=== PATIENT | female | born 1960 | race African-American/Black ===

== ENCOUNTER 2016-10-25 11:00 | Observation (INO) | payer SELFPAY ==
[2016-10-25 11:12] VITALS: BMI 28.2
[2016-10-25] MEDS ORDERED: ALBUTEROL SO4 0.083% IH SOL 2.5 MG/3 ML VIAL.NEB. NEB ONE ×2 (11:31→13:55)
[2016-10-25] MEDS ORDERED: predniSONE 20 MG TABLET (UD) PO ONE (11:45)
--- NOTE | 2016-10-25 11:45 | PDOC ---
History of Present Illness - History of Present Illness Initial Comments: 10/25/16 11:45 The patient is a 56 year old female, with a significant past medical history of asthma and ovarian cysts, who presents to the emergency department with shortness of breath, cough, and sinus congestion today. The patient states she has seasonal allergies and reports her asthma is exacerbated by the pollen in the air. She reports her cough is productive of yellow sputum. She reports using her albuterol with minimal relief of her symptoms. She denies use of nasal decongestants. She denies chest pain, headache and dizziness. She denies fever, chills, nausea , vomit, diarrhea and constipation. She denies dysuria, frequency, urgency and hematuria. Allergies: NKDA <Monica Maharaj - Last Filed: 10/25/16 11:45> <Marielle Krishnamurthy - Last Filed: 10/25/16 17:09> - General Chief Complaint: Respiratory Stated Complaint: CONGESTED, SOB Time Seen by Provider: 10/25/16 11:18 Past History <Monica Maharaj - Last Filed: 10/25/16 11:45> - Past Medical History Anemia: No Asthma: Yes Cancer: No Cardiac Disorders: No CVA: No COPD: No CHF: No Dementia: No Diabetes: No GI Disorders: No Disorders: No HTN: No Hypercholesterolemia: No Liver Disease: No Seizures: No Thyroid Disease: No - Surgical History Abdominal Surgery: No Appendectomy: No Cardiac Surgery: No Cholecystectomy: No Lung Surgery: No Neurologic Surgery: No Orthopedic Surgery: Yes (Right Rotator Cuff Repair) - Psycho/Social/Smoking Cessation Hx Anxiety: No Suicidal Ideation: No Smoking History: Never smoked Hx Alcohol Use: No Drug/Substance Use Hx: No Substance Use Type: None Hx Substance Use Treatment: No <Marielle Krishnamurthy - Last Filed: 10/25/16 17:09> - Past Medical History Allergies/Adverse Reactions: Allergies Allergy/AdvReac Type Severity Reaction Status Date / Time No Known Drug Allergies Allergy Verified 10/25/16 11:11 seasonal Allergy Uncoded 10/25/16 11:11 Home Medications: Ambulatory Orders Desloratadine [Clarinex] 5 mg PO DAILY 10/17/14 Mometasone/Formoterol [Dulera 200 Mcg/5 Mcg Inhaler] 2 inh IH BID 10/17/14 Albuterol Sulfate Inhaler - [Ventolin Hfa Inhaler -] 1 - 2 inh PO QID #1 unit Desloratadine 5 mg PO DAILY #30 tablet 10/25/16 Fluticasone Prop 0.05% Nasal [Flonase -] 1 - 2 spray NS DAILY #1 bottle Montelukast Na [Singulair -] 10 mg PO HS #30 tab 10/25/16 Prednisone [Deltasone -] 40 mg PO DAILY #8 tablet 10/25/16 Review of Systems - Review of Systems Able to Perform ROS?: Yes Comments:: 10/25/16 11:46 GENERAL/CONSTITUTIONAL: No fever or chills. No weakness. HEAD, EYES, EARS, NOSE AND THROAT: (+) sinus congestion. No change in vision. No ear pain or discharge. No sore throat. CARDIOVASCULAR: No chest pain or shortness of breath. RESPIRATORY: (+) cough, dyspnea. No wheezing, or hemoptysis. GASTROINTESTINAL: No nausea, vomiting, diarrhea or constipation. GENITOURINARY: No dysuria, frequency, or change in urination. MUSCULOSKELETAL: No joint or muscle swelling or pain. No neck or back pain. SKIN: No rash NEUROLOGIC: No headache, vertigo, loss of consciousness, or change in strength/ sensation. ENDOCRINE: No increased thirst. No abnormal weight change. HEMATOLOGIC/LYMPHATIC: No anemia, easy bleeding, or history of blood clots. ALLERGIC/IMMUNOLOGIC: No hives or skin allergy. <Monica Maharaj - Last Filed: 10/25/16 11:45> *Physical Exam - Vital Signs Last Vital Signs Temp Pulse Resp BP Pulse Ox 98.0 F 92 H 20 149/91 93 L 10/25/16 11:09 10/25/16 11:09 10/25/16 11:09 10/25/16 11:09 10/25/16 11:09 - Physical Exam Comments: 10/25/16 11:47 GENERAL: Awake, alert, and fully oriented, in no acute distress HEAD: No signs of trauma EYES: PERRLA, EOMI, sclera anicteric, conjunctiva clear ENT: Auricles normal inspection, hearing grossly normal, nares patent, oropharynx clear without exudates. Moist mucosa NECK: Normal ROM, supple, no lymphadenopathy, JVD, or masses LUNGS: (+) diffuse expiratory wheezing with decreased air entry and prolonged expiratory phase. Breath sounds equal, no crackles HEART: Regular rate and rhythm, normal S1 and S2, no murmurs, rubs or gallops ABDOMEN: Soft, nontender, normoactive bowel sounds. No guarding, no rebound. No masses EXTREMITIES: Normal range of motion, no edema. No clubbing or cyanosis. No cords, erythema, or tenderness NEUROLOGICAL: Cranial nerves II through XII grossly intact. Normal speech, normal gait SKIN: Warm, Dry, normal turgor, no rashes or lesions noted. <Monica Maharaj - Last Filed: 10/25/16 11:45> - Vital Signs Last Vital Signs Temp Pulse Resp BP Pulse Ox 98.0 F 92 H 20 149/91 93 L 10/25/16 11:09 10/25/16 11:09 10/25/16 11:09 10/25/16 11:09 10/25/16 11:09 <Marielle Krishnamurthy - Last Filed: 10/25/16 17:09> ED Treatment Course - LABORATORY CBC & Chemistry Diagram: 10/25/16 15:03 10/25/16 15:03 <Marielle Krishnamurthy - Last Filed: 10/25/16 17:09> Medical Decision Making - Medical Decision Making 10/25/16 14:36 Pt reported improvement in symptoms, and her lung exam has improved significantly. Plan was to discharge with refills of albuterol, singulair, and clarinex, as well as to start a nasal steroid. However, on repeat vitals, O2Sat was 91% off oxygen. Will start IV, give IV fluids, magnesium, and cont to monitor. 10/25/16 17:03 Pt reassessed. Off O2, her sat is between 92-95%. She becomes winded with exertion, and O2Sat decreases to 92. She has improved clinically, but still has exp wheezes. <Marielle Krishnamurthy - Last Filed: 10/25/16 17:09> *DC/Admit/Observation/Transfer - Attestations Scribe Attestion: 10/25/16 11:48 Documentation prepared by Monica Maharaj, acting as medical lab assistant for Marielle Krishnamurthy MD <Monica Maharaj - Last Filed: 10/25/16 11:45> - Discharge Dispostion Admit: Yes <Marielle Krishnamurthy - Last Filed: 10/25/16 17:09> Diagnosis at time of Disposition: Bronchitis Seasonal allergies Qualifiers: Allergic rhinitis trigger: unspecified Qualified Code(s): J30.2 - Other seasonal allergic rhinitis Asthma with acute exacerbation Qualifiers: Asthma severity: unspecified severity Qualified Code(s): J45.901 - Unspecified asthma with (acute) exacerbation - Discharge Dispostion Condition at time of disposition: Stable - Prescriptions Prescriptions: Prednisone [Deltasone -] 40 mg PO DAILY #8 tablet Desloratadine 5 mg PO DAILY #30 tablet Fluticasone Prop 0.05% Nasal [Flonase -] 1 - 2 spray NS DAILY #1 bottle Montelukast Na [Singulair -] 10 mg PO HS #30 tab Albuterol Sulfate Inhaler - [Ventolin Hfa Inhaler -] 1 - 2 inh PO QID #1 unit - Referrals Referrals: Miranda Celestin MD [Primary Care Provider] - - Patient Instructions
[2016-10-25] MEDS ORDERED: predniSONE 20 MG TABLET (UD) ONE (11:50)
[2016-10-25] MEDS: ALBUTEROL SO4 2.5/IPRATROPIUM 0.5 INH SOL 3 ML VIAL.NEB. NEB SCH ×3 (11:53→12:38)
[2016-10-25] MEDS ORDERED: MAGNESIUM SULF 50% (8.12 MEQ/2 ML-1 GM VIAL) IVPB ONE (14:43)
[2016-10-25] MEDS ORDERED: SODIUM CHLORIDE 1,000 ML IV STA (14:44)
[2016-10-25] MEDS ORDERED: MAGNESIUM SULF 50% (8.12 MEQ/2 ML-1 GM VIAL) ONE (14:52)
[2016-10-25 15:10] LABS: BASOPHIL 0.2 % (0-2.0); EOSINOPHIL 1.9 % (0-4.5); MCH 27.6 pg (25.7-33.7); MCHC 32.5 g/dl (32.0-36.0); MEAN CELL VOLUME 84.9 fl (80-96); NEUTROPHILS 82.1 % (42.8-82.8); PLATELET COUNT 299 K/MM3 (134-434); RDW 14.5 % (11.6-15.6); WHITE BLOOD COUNT 6.3 K/mm3 (4.0-10.0)
[2016-10-25 15:40] LABS: ALBUMIN 3.5 g/dl (3.4-5.0); ANION GAP 9 (8-16); BILIRUBIN,TOTAL 0.5 mg/dL (0.2-1.0); CALCIUM 9.4 mg/dL (8.5-10.1); CO2 25 mmol/L (21-32); COCKROFT - GAULT 116.6625; CREATININE 0.6 mg/dL (0.55-1.02); GLUCOSE,RANDOM 127 mg/dL (74-106); SGOT/AST 17 U/L (15-37); SGPT/ALT 24 U/L (12-78); TOT PROT 8.2 g/dl (6.4-8.2)
[2016-10-25 15:41] LABS: ALK PHOS 81 U/L (45-117)
[2016-10-25] MEDS ORDERED: AZITHROMYCIN IVPB 500 MG in DEXTROSE 5%-WATER - 250 ML IVPB ONE (16:55)
[2016-10-25] MEDS ORDERED: ALBUTEROL SO4 0.083% IH SOL 2.5 MG/3 ML VIAL.NEB. NEB PRN (17:10)
[2016-10-25] MEDS ORDERED: ACETAMINOPHEN 325 MG TABLET (FP) PO PRN (17:10)
--- NOTE | 2016-10-25 17:50 | HP ---
CHIEF COMPLAINT: sob and coughing with exertion, PCP:Not on staff HISTORY OF PRESENT ILLNESS: The patient is a 56 year old female, with a significant past medical history of asthma and ovarian cysts, who presents to the emergency department with shortness of breath, cough, and sinus congestion today. The patient states she has seasonal allergies and reports her asthma is exacerbated by the pollen in the air. She reports her cough is productive of yellow sputum. She reports using her albuterol with minimal relief of her symptoms. She denies use of nasal decongestants. She denies chest pain, headache and dizziness. She denies fever, chills, nausea , vomit, diarrhea and constipation. She denies dysuria, frequency, urgency and hematuria. ER course was notable for: (1)asthma exacerbation given oral steroids and cxr (clear) (2) (3) Recent Travel: denies PAST MEDICAL HISTORY: asthma PAST SURGICAL HISTORY: Social History: Smoking: Alcohol: Drugs: Family History: Allergies No Known Drug Allergies Allergy (Verified 10/25/16 11:11) seasonal Allergy (Uncoded 10/25/16 11:11) HOME MEDICATIONS: Home Medications Medication Instructions Recorded Desloratadine [Clarinex] 5 mg PO DAILY 10/17/14 Mometasone/Formoterol [Dulera 200 2 inh IH BID 10/17/14 Mcg/5 Mcg Inhaler] Albuterol Sulfate Inhaler - 1 - 2 inh PO QID #1 unit 10/25/16 [Ventolin Hfa Inhaler -] Desloratadine 5 mg PO DAILY #30 tablet 10/25/16 Fluticasone Prop 0.05% Nasal 1 - 2 spray NS DAILY #1 bottle 10/25/16 [Flonase -] Montelukast Na [Singulair -] 10 mg PO HS #30 tab 10/25/16 Prednisone [Deltasone -] 40 mg PO DAILY #8 tablet 10/25/16 REVIEW OF SYSTEMS CONSTITUTIONAL: Absent: fever, chills, diaphoresis, generalized weakness, malaise, loss of appetite, weight change HEENT: Absent: rhinorrhea, nasal congestion, throat pain, throat swelling, difficulty swallowing, mouth swelling, ear pain, eye pain, visual changes CARDIOVASCULAR: Absent: chest pain, syncope, palpitations, irregular heart rate, lightheadedness , peripheral edema RESPIRATORY: Absent: (+)cough, (+)shortness of breath,(+) dyspnea with exertion, orthopnea, wheezing, stridor, hemoptysis GASTROINTESTINAL: Absent: abdominal pain, abdominal distension, nausea, vomiting, diarrhea, constipation, melena, hematochezia GENITOURINARY: Absent: dysuria, frequency, urgency, hesitancy, hematuria, flank pain, genital pain MUSCULOSKELETAL: Absent: myalgia, arthralgia, joint swelling, back pain, neck pain SKIN: Absent: rash, itching, pallor HEMATOLOGIC/IMMUNOLOGIC: Absent: easy bleeding, easy bruising, lymphadenopathy, frequent infections ENDOCRINE: Absent: unexplained weight gain, unexplained weight loss, heat intolerance, cold intolerance NEUROLOGIC: Absent: headache, focal weakness or paresthesias, dizziness, unsteady gait, seizure, mental status changes, bladder or bowel incontinence PSYCHIATRIC: Absent: anxiety, depression, suicidal or homicidal ideation, hallucinations. PHYSICAL EXAMINATION Vital Signs - 24 hr 10/25/16 10/25/16 10/25/16 11:09 12:53 13:10 Temperature 98.0 F Pulse Rate 92 H Pulse Rate [ 98 H Apical] Respiratory 20 20 Rate Blood Pressure 149/91 Blood Pressure 126/73 [Right Arm] O2 Sat by Pulse 93 L 93 L 96 Oximetry (%) 10/25/16 10/25/16 14:37 16:53 Temperature Pulse Rate Pulse Rate [ 89 94 H Apical] Respiratory 18 20 Rate Blood Pressure Blood Pressure 118/69 127/73 [Right Arm] O2 Sat by Pulse 90 L 96 Oximetry (%) GENERAL: Awake, alert, and fully oriented, in no acute distress. HEAD: Normal with no signs of trauma. EYES: Pupils equal, round and reactive to light, extraocular movements intact, sclera anicteric, conjunctiva clear. No lid lag. EARS, NOSE, THROAT: Ears normal, nares patent, oropharynx clear without exudates. Moist mucous membranes. NECK: Normal range of motion, supple without lymphadenopathy, JVD, or masses. LUNGS: Breath sounds equal, upper airway with mild wheezing and + cough to auscultation bilaterally. no crackles. No accessory muscle use. HEART: Regular rate and rhythm, normal S1 and S2 without murmur, rub or gallop. ABDOMEN: Soft, nontender, not distended, normoactive bowel sounds, no guarding, no rebound, no masses. No hepatomegaly or splenomegaly. MUSCULOSKELETAL: Normal range of motion at all joints. No bony deformities or tenderness. No CVA tenderness. UPPER EXTREMITIES: 2+ pulses, warm, well-perfused. No cyanosis. No clubbing. No peripheral edema. LOWER EXTREMITIES: 2+ pulses, warm, well-perfused. No calf tenderness. No peripheral edema. NEUROLOGICAL: Cranial nerves II-XII intact. Normal speech. Normal gait. PSYCHIATRIC: Cooperative. Good eye contact. Appropriate mood and affect. SKIN: Warm, dry, normal turgor, no rashes or lesions noted, normal capillary refill. Laboratory Results - last 24 hr 10/25/16 10/25/16 15:03 15:03 WBC 6.3 RBC 5.26 H Hgb 14.5 Hct 44.6 MCV 84.9 MCHC 32.5 RDW 14.5 Plt Count 299 MPV 8.0 Neutrophils % 82.1 Lymphocytes % 13.2 Monocytes % 2.6 L Eosinophils % 1.9 Basophils % 0.2 Sodium 137 Potassium 4.5 Chloride 103 Carbon Dioxide 25 Anion Gap 9 BUN 10 Creatinine 0.6 Creat Clearance w eGFR > 60 Random Glucose 127 H Calcium 9.4 Total Bilirubin 0.5 AST 17 ALT 24 Alkaline Phosphatase 81 Total Protein 8.2 Albumin 3.5 ASSESSMENT/PLAN: This 56 yr old female with c/o asthma excerbation with + cough, neg fever being admitted for obs for hypoxia on pulse ox 1. asthma/bronchitis -pulse ox maintain over 90 -oxygen as needed -bronchodilators -started steriods in ER will taper inhouse -cxr negative -antibiotics started in ED. -admission obsrvation for asthma Visit type - Emergency Visit Emergency Visit: Yes Care time: The patient presented to the Emergency Department on the above date and was hospitalized for further evaluation of their emergent condition. - New Patient This patient is new to me today: Yes Date on this admission: 10/25/16 - Critical Care Critical Care patient: No
[2016-10-25 18:01] LABS: URINE APPEARANCE CLEAR; URINE BILIRUBIN NEGATIVE (NEGATIVE); URINE BLOOD NEGATIVE (NEGATIVE); URINE COLOR STRAW; URINE GLUCOSE (UA) 2+ (NEGATIVE); URINE KETONE TRACE (NEGATIVE); URINE LEUK ESTERASE NEGATIVE (NEGATIVE); URINE NITRITE NEGATIVE (NEGATIVE); URINE PROTEIN NEGATIVE (NEGATIVE); URINE UROBILINOGEN NEGATIVE E.U./dl (0.2-1.0)
[2016-10-25 18:06] LABS: ARTERIAL BLD GAS O2 SATURATION 96.7 % (90-98.9); ARTERIAL BLOOD GAS BASE EXCESS -4.6 meq/l (-2-2); ARTERIAL BLOOD GAS HCO3 19.9 meq/L (22-26); ARTERIAL BLOOD GAS PO2 89.3 mmHg (80-100); ARTERIAL BLOOD GAS pH 7.35 (7.35-7.45)
[2016-10-25 18:07] LABS: ALLENS TEST POSITIVE; ART PUNCT SITE RIGHT RADIAL; LPM/O2% 2L; PT. ON O2? YES; TYPE OF O2 N/C
[2016-10-25] MEDS ORDERED: MONTELUKAST NA 10 MG TABLET PO SCH (22:00)
[2016-10-26] MEDS: ALBUTEROL SO4 2.5/IPRATROPIUM 0.5 INH SOL 3 ML VIAL.NEB. NEB SCH ×4 (06:30→18:01)
[2016-10-26 08:00] LABS: BASOPHIL 0.1 % (0-2.0); EOSINOPHIL 3.2 % (0-4.5); MCH 27.8 pg (25.7-33.7); MCHC 32.5 g/dl (32.0-36.0); MEAN CELL VOLUME 85.5 fl (80-96); MEAN PLT VOLUME 8.1 fl (7.5-11.1); NEUTROPHILS 55.8 % (42.8-82.8); PLATELET COUNT 284 K/MM3 (134-434); RDW 13.8 % (11.6-15.6); WHITE BLOOD COUNT 7.1 K/mm3 (4.0-10.0)
[2016-10-26] MEDS ORDERED: predniSONE 20 MG TABLET (UD) PO ONE (08:00)
[2016-10-26 08:18] LABS: ALBUMIN 3.1 g/dl (3.4-5.0); ANION GAP 7 (8-16); CALCIUM 8.9 mg/dL (8.5-10.1); CO2 27 mmol/L (21-32); GLUCOSE,RANDOM 109 mg/dL (74-106); MAGNESIUM 2.3 mg/dL (1.8-2.4)
[2016-10-26 08:23] LABS: ALK PHOS 72 U/L (45-117); BILIRUBIN,TOTAL 0.4 mg/dL (0.2-1.0); COCKROFT - GAULT 116.6625; CREATININE 0.6 mg/dL (0.55-1.02); PHOSPHOROUS 3.4 mg/dL (2.5-4.9); SGOT/AST 16 U/L (15-37); SGPT/ALT 21 U/L (12-78); TOT PROT 7.5 g/dl (6.4-8.2)
[2016-10-26] MEDS ORDERED: AZITHROMYCIN IVPB 250 MG in DEXTROSE 5%-WATER - 250 ML IVPB SCH (10:00)
[2016-10-26] MEDS ORDERED: PANTOPRAZOLE 40 MG TABLET (FP) PO SCH (10:00)
--- NOTE | 2016-10-26 15:03 | PN ---
Teaching Attending Note Name of Resident: Jena Cerna ATTENDING PHYSICIAN STATEMENT I saw and evaluated the patient. I reviewed the resident's note and discussed the case with the resident. I agree with the resident's findings and plan as documented. SUBJECTIVE:continues to have cough, no longer productive. states she has not tried to ambulate other than the few feet to the bathroom. last exacerbation was several years ago. only admitted once for symptoms and never been intubated. states her grandchild is sick with rhinorrhea and cough. denies Cp, fever, chills, N/V/C/d OBJECTIVE: Last Vital Signs Temp Pulse Resp BP Pulse Ox 98.5 F 83 22 130/77 96 10/26/16 09:30 10/26/16 09:30 10/26/16 11:00 10/26/16 09:30 10/26/16 11:00 General NAD CV S1 S2 RRR no murmur/rub/gallop Lungs coarse breath sounds no wheezing or crackles ASSESSMENT AND PLAN: 56yo F wtih PMH asthma presented to the ER with cough and SOB 1. Acute asthma exacerbation- clinically improved. saturating 97% on RA. no wheezing on my exam. encouraged pt to ambulate halls to evaluate if able to tolerate. on prednisone 40mg po. azithromycin day2. on singulair. check pre & post 2. if able to tolerate ambulating without dyspnea can d/c home on short steroid taper and total of 5 days of abx. will need pmd follow up this week
[2016-10-26 17:14] VITALS: BP 127/78; PULSE 87; TEMP 99.1
--- NOTE | 2016-10-26 18:36 | DS ---
Physical Exam: SUBJECTIVE: Patient seen and examined by me at bedside. Patient reports she is feeling better but still has a cough that is no longer productive. Patient reports her last asthma attack wad many years ago and was never intubated. Patient does report her allergies are acting up and has had cold symptoms the last week. She does admit exposure to sick contacts. Otherwise, patient denies fever, chills, nausea, vomiting, abdominal pain, chest pain, palpitations, diarrhea, constipation. OBJECTIVE: Vital Signs Period Temp Pulse Resp BP Sys/Torres Pulse Ox Last 24 Hr 98.5 F-99.1 F 80-103 18-22 116-144/72-78 96-97 PHYSICAL EXAM GENERAL: The patient is awake, alert, and fully oriented, in no acute distress. HEAD: Normal with no signs of trauma. EYES: Sclera anicteric, conjunctiva clear. ENT: Oropharynx clear without exudates, moist mucous membranes.. LUNGS: Course breath sounds throughout lung bases. HEART: Regular rate and rhythm, S1, S2 without murmur, rub or gallop. ABDOMEN: Soft, nontender, nondistended, normoactive bowel sounds, no guarding, no rebound, no hepatosplenomegaly, no masses. EXTREMITIES: No Peripheral edema. NEUROLOGICAL: Normal speech, Normal Gait. No facial droop. Motor strength 5/5. Sensory intact SKIN: Warm, dry, normal turgor, no rashes or lesions noted. LABS Laboratory Results - last 24 hr 10/25/16 10/26/16 10/26/16 17:45 06:30 06:30 WBC 7.1 RBC 4.99 Hgb 13.8 Hct 42.6 MCV 85.5 MCHC 32.5 RDW 13.8 Plt Count 284 MPV 8.1 Neutrophils % 55.8 D Lymphocytes % 31.5 D Monocytes % 9.4 D Eosinophils % 3.2 Basophils % 0.1 Sodium 139 Potassium 4.9 Chloride 105 Carbon Dioxide 27 Anion Gap 7 L BUN 13 D Creatinine 0.6 Creat Clearance w eGFR > 60 Random Glucose 109 H Calcium 8.9 Phosphorus 3.4 Magnesium 2.3 Total Bilirubin 0.4 AST 16 ALT 21 Alkaline Phosphatase 72 Total Protein 7.5 Albumin 3.1 L Ur Specific [place] 1.020 IMAGES: Chest X-Ray (10/25/16): No acute pathology HOSPITAL COURSE: Patient is a 56 year old female with a significant PMHx of asthma who presented to the hospital with dyspnea, productive cough and sinus congestion that worsened. Patient reports having seasonal allergies and this year her allergies are really exacerbated. Patient was found to have bilateral wheezes throughout lung bases with an 02 saturation of 93%. Patient reports compliance with her singulair, Delura and Albuterol but with minimal relief. Patient does admit to frequent use of her albuterol this week. Throughout the course patient was given Prednisone, Duo-Neb, Magnesium sulfate, and started on Azithromycin. Patient's symptoms improved overnight. 02 pre and post exercise were done and patient had a saturation of 96% both times. Patient had resolution of wheezing and was stable for discharge. A prescription for Prednisone, DuoNeb, and Antibiotics were sent to the pharmacy. Explained to patient she will need to follow up with a Tank Tester for PFT's. Patient verbalized understanding . Date of Admission:10/25/16 Date of Discharge: 10/26/16 Minutes to complete discharge: 35 Discharge Summary Reason For Visit: BRONCHITIS, ATHSMA W/ACUTE EXACERBATION Current Active Problems Asthma with acute exacerbation (Acute) Bronchitis (Acute) Seasonal allergies (Acute) Condition: Stable - Instructions Diet, Activity, Other Instructions: -You were admitted for Asthma Exacerbation with a possible infection of the lungs -You will be prescribed an an antibiotic and will need to take it three more days, starting tomorrow. -You will also be prescribed Prednisone. Take three pills tomorrow, then two pills the following day, and then one pill the following day. -Continue taking your current home medications. Dulera, Signulair, and Albuterol. -You will need to follow up with a Tank Tester to check your lung function within two weeks. There will be a referral in the discharge packer denture for Dr. Andrews. -Follow up with your primary care physician within a wek -If you have severe shortness of breath or chest pain, return to the Emergency department. -You may resume your regular diet and daily activities Referrals: Miranda Celestin MD [Primary Care Provider] - Almas Andrews MD [Staff Physician] - Disposition: HOME - Home Medications Comprehensive Discharge Medication List: Ambulatory Orders Mometasone/Formoterol [Dulera 200 Mcg/5 Mcg Inhaler] 2 inh IH BID 10/17/14 Albuterol Sulfate Inhaler - [Ventolin HFA Inhaler -] 1 - 2 inh PO QID #1 unit Desloratadine 5 mg PO DAILY #30 tablet 10/25/16 Fluticasone Prop 0.05% Nasal [Flonase -] 1 - 2 spray NS DAILY #1 bottle Montelukast Na [Singulair -] 10 mg PO HS #30 tab 10/25/16 Albuterol 2.5/Ipratropium 0.5 [Duoneb -] 1 neb IH QID PRN #1 vial.neb. 10/26/16 Azithromycin Ivpb [Zithromax Ivpb -] 250 mg PO DAILY #3 vial 10/26/16 Prednisone [Deltasone -] 10 mg PO DAILY #6 tablet 10/26/16 This patient is new to me today: Yes Date on this admission: 10/26/16 Emergency Visit: Yes ED Registration Date: 10/25/16 Care time: The patient presented to the Emergency Department on the above date and was hospitalized for further evaluation of their emergent condition. Critical Care patient: No - Discharge Referral Referred to [facility] No
[2016-10-27] MEDS ORDERED: predniSONE 10 MG TABLET (UD) PO SCH (08:00)
== END 2016-10-26 18:47 | disposition home or self-care (01) ==
LOC: JER 11:00 → JERBED 17:09 → UNDOADMOB 17:49 → JERBED 17:49 → J8W 19:57
PROVIDERS: ADMIT Internal Medicine; ATTEND Internal Medicine
CPT/HCPCS: 36415; 36600; 71010-TC; 80053; 81003; 82803; 83735; 84100; 84703; 85025; 94150; 94640; 94761; 99285-25; G0378